=== PATIENT | male | born 1935 | race Caucasian/White ===

== ENCOUNTER → 2021-03-04 | Outpatient (CLI) | payer MEDICARE, OTHER ==
[2021-03-05 11:14] LABS: CREATININE, URINE 96.3 mg/dL (Not Estab.)
== END ==
LOC: LAB 09:01
PROVIDERS: Emergency Medicine; Internal Medicine Nephrology
DX: I12.9 Hypertensive chronic kidney disease with stage 1 through stage 4 chronic kidney disease, or unspecified chronic kidney disease (principal); N18.30 Chronic kidney disease, stage 3 unspecified; E78.2 Mixed hyperlipidemia
CPT/HCPCS: 36415; 80053; 82043; 82570

== ENCOUNTER → 2022-02-13 | Outpatient (CLI) | payer MEDICARE ==
[2022-02-13 09:51] LABS: HEMOGLOBIN 16.2 gm/dl (14.0-17.5); RED BLOOD COUNT 4.98 M/UL (4.20-5.50); WHITE BLOOD COUNT 5.9 K/UL (4.5-11.0)
[2022-02-14 10:18] LABS: CREATININE, URINE 78.9 mg/dL (Not Estab.)
[2022-02-14 18:13] LABS: CHOLESTEROL, TOTAL 153 mg/dL (100-199); HDL SIZE 8.9 nm (>=9.2); HDL-C 41 mg/dL (>39); HDL-P (TOTAL) 25.4 umol/L (>=30.5); LARGE HDL-P 3.4 umol/L (>=4.8); LARGE VLDL-P 4.3 nmol/L (<=2.7); LDL SIZE 20.9 nm (>20.5); LDL SIZE 20.9 nm (>=20.8); LDL-C 91 mg/dL (0-99); LDL-P 1077 nmol/L (<1000); LP-IR SCORE 57 (<=45); SMALL LDL-P 533 nmol/L (<=527); TRIGLYCERIDES 118 mg/dL (0-149)
== END ==
LOC: LAB 09:21
PROVIDERS: Internal Medicine Nephrology
DX: N40.0 Benign prostatic hyperplasia without lower urinary tract symptoms (principal); E79.0 Hyperuricemia without signs of inflammatory arthritis and tophaceous disease; F52.21 Male erectile disorder; I12.9 Hypertensive chronic kidney disease with stage 1 through stage 4 chronic kidney disease, or unspecified chronic kidney disease; N18.31 Chronic kidney disease, stage 3a
CPT/HCPCS: 36415; 80053; 80061; 82043; 82570; 83704; 84550; 85025